=== PATIENT | female | born 1985 | race Caucasian/White ===

== ENCOUNTER 2021-08-14 08:09 | Day surgery (SDC) | payer OTHER ==
[2021-08-09 14:42] VITALS: BMI 20.5
[~2021-08-14 08:09] MED LIST: LACTATED RINGERS 1,000 ML IV SCH; LIDOCAINE 1% (10MG/ML) FOR IV START INTRADERMA PRN
[2021-08-14 08:33] VITALS: RESP 16; TEMP 97.3
--- NOTE | 2021-08-14 09:08 | P.GSHP ---
History of Present Illness H&P Date: 08/14/21 CHIEF COMPLAINT: GERD and change in bowel habits HISTORY OF PRESENT ILLNESS: The patient is a 35-year-old female who presents with gastroesophageal reflux disease and change in bowel habits Upper and lower endoscopy were offered for further evaluation and management. PAST MEDICAL HISTORY: Please see list. PAST SURGICAL HISTORY: Please see list. MEDICATIONS: Please see list. ALLERGIES: Please see list. SOCIAL HISTORY: No illicit drug use FAMILY HISTORY: No reports of Crohn disease or ulcerative colitis. REVIEW OF ORGAN SYSTEMS: CONSTITUTIONAL: No reports of fevers or chills. GI: Denies any blood in stools or constipation. PHYSICAL EXAM: VITAL SIGNS: Stable GENERAL: Well-developed pleasant in no acute distress. HEENT: No scleral icterus. Extraocular movements grossly intact. Moist buccal mucosa. NECK: Supple without lymphadenopathy. CHEST: Unlabored respirations. Equal bilateral excursions. CARDIOVASCULAR: Regular rate and rhythm. Distal 2+ pulses. ABDOMEN: Soft, nondistended. MUSCULOSKELETAL: No clubbing, cyanosis, or edema. ASSESSMENT: 1. Gastroesophageal reflux disease 2. Change in bowel habits PLAN: 1. Recommend proceeding with an upper and lower endoscopy Past Medical History Past Medical History: No Reported History History of Any Multi-Drug Resistant Organisms: None Reported Past Surgical History: Section Additional Past Surgical History / Comment(s): d & c Past Anesthesia/Blood Transfusion Reactions: No Reported Reaction Smoking Status: Former smoker, Vaper Medications and Allergies Home Medications Medication Instructions Recorded Confirmed Type Dextroamphetamine/Amphetamine 30 mg PO BID 08/09/21 08/09/21 History [Adderall] Loratadine [Claritin] 10 mg PO DAILY 08/09/21 08/09/21 History Allergies Allergy/AdvReac Type Severity Reaction Status Date / Time Penicillins Allergy Rash/Hives Verified 08/14/21 08:23 Surgical - Exam Vital Signs Temp Pulse Resp BP Pulse Ox 97.3 F L 99 16 121/80 99 08/14/21 08:28 08/14/21 08:28 08/14/21 08:28 08/14/21 08:28 08/14/21 08:28
[2021-08-14] MEDS ORDERED: LIDOCAINE 2% INJ 20 MG/ML (2 ML VIAL) ONE (09:15)
[2021-08-14] MEDS ORDERED: PROPOFOL 10 MG/ML 20 ML VIAL IV ONE (09:15)
[2021-08-14 09:53] VITALS: BP 108/71
[2021-08-14 10:13] VITALS: PULSE 92
--- NOTE | 2021-08-14 10:19 | P.PCN ---
Date of Procedure: 08/14/21 Description of Procedure: PREOPERATIVE DIAGNOSIS: Gastrointestinal bleed POSTOPERATIVE DIAGNOSIS: External hemorrhoid, grade 3 without bleeding Internal hemorrhoids Sigmoid colon ulcerative polyp OPERATION: Colonoscopy to the ileocecal valve and appendiceal orifice, cecum Colonoscopy with hot snare polypectomy SURGEON: Janeen Vidales MD. ANESTHESIA: MAC. INDICATIONS: The patient is an 35-year-old female who presents with gastrointestinal bleeding. Benefits and risks were described and informed consent was obtained. DESCRIPTION OF PROCEDURE: The patient had undergone Sutab prep. The patient had been brought into the operating room and laid in the left lateral decubitus position. After adequate intravenous sedation, the rectum was examined with 2% lidocaine jelly. External hemorrhoids were encountered. The rectal tone was within normal limits. No lesions were palpated in the rectal vault. An Olympus colonoscope was advanced until the cecum, ileocecal valve and appendiceal orifice were clearly viewed. The prep was excellent. No sigmoid diverticulosis was encountered. Colonic polyps were found and removed. No evidence of focal colitis was found. Retroflexion of the scope demonstrated grade 2 internal hemorrhoids without active bleeding or inflammation. The colon was desufflated. The patient had tolerated the procedure well. Withdrawal time was over 6 minutes. FINDINGS: Aronchick preparation quality scale 1 (1-5) Internal hemorrhoids, grade 2 External hemorrhoids, grade 3 No arteriovenous malformations. No sigmoid diverticulosis Removal of 1 polyps: - Snare polypectomy 20 cm from the anal verge, 5 mm tubulovillous adenoma polyp, sigmoid colon No focal colitis. RECOMMENDATIONS: Repeat colonoscopy in 3 years, 2024 Plan - Discharge Summary Discharge Rx Participant: No New Discharge Prescriptions: New Omeprazole [PriLOSEC] 40 mg PO DAILY #14 cap Continue Loratadine [Claritin] 10 mg PO DAILY Dextroamphetamine/Amphetamine [Adderall] 30 mg PO BID Discharge Medication List Dextroamphetamine/Amphetamine [Adderall] 30 mg PO BID 08/09/21 [History] Loratadine [Claritin] 10 mg PO DAILY 08/09/21 [History] Omeprazole [PriLOSEC] 40 mg PO DAILY #14 cap 08/14/21 [Rx] Follow up Appointment(s)/Referral(s): Janeen Vidales MD [STAFF PHYSICIAN] - 08/27/21 Patient Instructions/Handouts: Gastritis (DC), Hemorrhoids (DC), Colorectal Polyps (GEN) Activity/Diet/Wound Care/Special Instructions: Repeat colonoscopy in 3 years, 2024 Discharge Disposition: HOME SELF-CARE
--- NOTE | 2021-08-14 10:31 | P.PCN ---
Date of Procedure: 08/14/21 Description of Procedure: PREOPERATIVE DIAGNOSIS: Gastrointestinal bleeding POSTOPERATIVE DIAGNOSIS: Gastritis with bleeding Chronic gastric ulcers Gastroesophageal reflux disease with cirrhosis esophagitis OPERATION: Esophagogastroduodenoscopy SURGEON: Janeen Vidales MD ANESTHESIA: MAC. INDICATIONS: The patient is a 35-year-old female who presents with gastrointestinal bleeding. Benefits and risks of the procedure were described. Informed consent was obtained. DESCRIPTION: The patient was brought into the endoscopy suite and laid in the left lateral decubitus position. An Olympus gastroscope was passed along the posterior oropharynx down to the distal esophagus where the squamocolumnar junction was encountered at 40 cm from the incisors. The stomach was entered and no bile reflux was found. Additional findings are listed below. The first through third portion of the duodenum was examined with active duodenitis Retroflexion of the scope confirmed Hill grade 2 lower esophageal valve. The squamocolumnar junction demonstrated LA grade C erosive esophagitis. The stomach was desuffla mary kay. The patient tolerated the procedure well. FINDINGS: Squamocolumnar junction 40 cm from the incisors. Diaphragmatic hiatus at 40 cm. Hill grade 2 lower esophageal valve. LA grade C erosive esophagitis. Active duodenitis without bleeding Gastritis with bleeding Acute gastric ulcer RECOMMENDATIONS: Omeprazole 40 mg daily for 2 weeks Repeat upper endoscopy in one month
== END 2021-08-14 10:49 | disposition home or self-care (01) ==
LOC: ORWHC2ENDO 08:09
PROVIDERS: ATTEND Surgery Plastic and Reconstructive Surgery
DX: K25.4 Chronic or unspecified gastric ulcer with hemorrhage (principal); K64.4 Residual hemorrhoidal skin tags; K63.3 Ulcer of intestine; K64.8 Other hemorrhoids; K21.00 Gastro-esophageal reflux disease with esophagitis, without bleeding; Z87.891 Personal history of nicotine dependence; Z88.0 Allergy status to penicillin
CPT/HCPCS: 43235; 45385; 81025; 88305; J2704; J2001